=== PATIENT | female | born 1975 | race Hispanic/Latino ===

== ENCOUNTER 2017-04-28 20:10 | Emergency (ER) | payer SELFPAY ==
[~2017-04-28] VITALS: Ht 157.5 cm; Wt 75.6 kg
[~2017-04-28 20:10] MED LIST: CIPROFLOXACN500 MG PO; LORTAB 7.5 PO; NO HOME MEDS
[2017-04-28] MEDS ORDERED: ULTRAM50 M1 PO (21:48)
[2017-04-28 21:55] VITALS: BP 113/72
== END 2017-04-28 21:57 | disposition home or self-care (01) | DRG 556 ==
LOC: ED 20:10
DX: M25.562 Pain in left knee (principal); M25.462 Effusion, left knee

== ENCOUNTER 2018-08-09 20:06 | Emergency (ER) | payer SELFPAY ==
[~2018-08-09] VITALS: Ht 157.5 cm; Wt 69.0 kg
[~2018-08-09 20:06] MED LIST changes: +ULTRAM50 M1 PO
[2018-08-09] MEDS ORDERED: NORGESTIMATE/ETHINYL PO (20:50)
[2018-08-09] MEDS ORDERED: AMOXICILLIN500 MG PO (21:21)
[2018-08-09 21:28] VITALS: BP 119/78
== END 2018-08-09 21:28 | disposition home or self-care (01) | DRG 153 ==
LOC: ED 20:06
DX: J02.9 Acute pharyngitis, unspecified (principal)